=== PATIENT | female | born 1960 | race African-American/Black ===

== ENCOUNTER 2016-07-29 13:19 | Emergency (ER) | payer OTHER ==
[~2016-07-29] VITALS: Ht 167.6 cm; Wt 91.0 kg
[2016-07-29 13:24] VITALS: BP 145/86; PULSE 85; O2SAT 98
--- NOTE | 2016-07-29 13:52 | PD ---
HPI Chief Complaint: Related Problem Time Seen by Provider: 13:35 Travel History International Travel<30 days: No Contact w/Intl Traveler<30days: No Traveled to known affect area: No History of Present Illness HPI Is a 55-year-old woman who presents to the emergency department worse maybe . States she's been feeling fluttering in movement. She states she hasn't had a menstrual cycle since May of last year. She has breast tenderness in January and took a test that was negative. She stated several tests here and they were negative. She is wants to make sure she is not . No discharge. No other complaints. History Past Medical History Narrative Medical Hyperthyroidism Tetanus Vaccination: < 5 Years Menopausal: Yes Past Surgical History Surgical History: No Previous Surgery Social History Alcohol Use: No Tobacco Use: No Allergies-Medications (Allergen,Severity, Reaction): Coded Allergies: No Known Allergies (Unverified , 07/29/16) Reported Meds & Prescriptions Reported Meds & Active Scripts Active No Active Prescriptions or Reported Medications Review of Systems Except as stated in HPI: all other systems reviewed are Neg Physical Exam Narrative GENERAL: Well-appearing 55-year-old woman, no acute distress. SKIN: Focused skin assessment warm/dry. HEAD: Atraumatic. Normocephalic. CARDIOVASCULAR: Regular rate and rhythm. No murmur appreciated. RESPIRATORY: No accessory muscle use. Clear to auscultation. Breath sounds equal bilaterally. GASTROINTESTINAL: Abdomen soft, non-tender, nondistended. Hepatic and splenic margins not palpable. MUSCULOSKELETAL: No obvious deformities. No edema. Data Data Last Documented VS Vital Signs Date Time Temp Pulse Resp B/P Pulse Ox O2 Delivery O2 Flow Rate FiO2 07/29/16 13:24 85 145/86 98 Orders Ed Urine Pregnancytest Poc (07/29/16 13:40) Ed Poc Ultrasound (07/29/16 ) [facility] Medical Decision Making Medical Screen Exam Complete: Yes Emergency Medical Condition: Yes Differential Diagnosis Gas, palpitations, , other Narrative Course Medical decision making The 5-year-old woman presents emergent department finish feels like she feels movement in fluttering in her abdomen, more on the left side. She works may be . She is not. Symptoms may be from gas, possibly palpitations. Recommend outpatient follow-up. Procedures Procedure Narrative Point of care ultrasound: Focus transabdominal ultrasounds perform a me to evaluate for evidence of . No evidence of was seen. Diagnosis Primary Impression: Gas pain Additional Instructions: Follow-up with your primary doctor symptoms persist. Return to the emergency department for any new or worsening symptoms. Med/Other Pt SpecificInfo: No Change to Meds Scripts No Active Prescriptions or Reported Meds Disposition: 01 DISCHARGE HOME Condition: Stable Amrik Kc MD Jul 29, 2016 13:52
[2016-07-29 14:13] VITALS: BP 136/88
== END 2016-07-29 14:14 | disposition home or self-care (01) ==
LOC: NEPD 13:19
DX: R14.1 Gas pain (principal); E05.90 Thyrotoxicosis, unspecified without thyrotoxic crisis or storm
CPT/HCPCS: 84703; 99284